=== PATIENT | female | born 1955 | race Caucasian/White ===

== ENCOUNTER → 2023-04-05 08:38 | Outpatient (REF) | payer MEDICARE, OTHER, SELFPAY | LOC: HWWDC 08:38 | PROVIDERS: ATTENDING PHYSICIAN Obstetrics & Gynecology Gynecology; FAMILY PHYSICIAN Internal Medicine | DX: Z12.31 Encounter for screening mammogram for malignant neoplasm of breast (principal) | CPT/HCPCS: 77063; 77067 ==

== ENCOUNTER 2023-10-02 07:15 | Emergency (ER) | payer MEDICARE, OTHER, SELFPAY ==
[2023-10-02 07:22] VITALS: BP 159/84
--- NOTE | 2023-10-02 07:51 | ED.GENMED ---
History of Present Illness
General
Chief Complaint: Throat Problem
Source: patient
Exam Limitations: none
Time Seen by Provider: 10/02/23 07:28
Nursing documentation reviewed up to this point in time: agreed with
History of Present Illness
History of Present Illness:
68-year-old female with no significant chronic medical issues presents to the emergency room for evaluation of sore throat. Patient reports onset of symptoms 4 days ago and they have been constant and she feels worsening since then. She reports
that her past day or 2 she has noticed increased pain and difficulty swallowing her saliva and she says that she is having some sensation of swelling that is causing some mild shortness of breath. She says that she was seen in urgent care and
tested for strep which was negative. She also had COVID test which was negative. She has been managing her symptoms with ibuprofen but given continued worsening came to the emergency room for assessment. Her last dose of ibuprofen was about an
hour prior to arrival. She does note mild cough and this morning she says she coughed up a small amount of bloody phlegm from the back of her throat. She denies fever or chills. She denies any nausea or vomiting. She denies any congestion or
rhinorrhea. She denies any other complaints. She does report that her is sick with a cough as well.
Past History
Past History
ED Past Medical History: None
ED Past Surgical History: None
Review of Systems
Review of Systems
All Other Systems: ROS reviewed and negative except as documented in HPI and ROS
Constitutional: Reports fatigue; Denies fever or chills
EENT: Reports sore throat; Denies runny nose
Respiratory: Reports cough and trouble breathing
Cardiac: Denies chest pain
ABD/GI: Denies abdominal pain, nausea or vomiting
Neurological: Denies headache
Phy Exam
Physical Exam
Physical Exam:
General: Awake, alert, oriented x3; no acute distress
Head: Normocephalic, atraumatic
Eyes: Conjunctiva normal, pupils equal round and reactive to light bilaterally
Ears: TMs clear bilaterally
Nose: No swelling of the turbinates, no nasal discharge, no tenderness of the sinuses
Throat: Airway intact, handling secretions; she has significant injection of the oropharynx and uvula, tonsillar erythema but no exudate noted, no palatal petechiae; no elevation of the tongue, good dentition
Neck: Trachea midline, supple without meningismus; bilateral anterior cervical chain lymphadenopathy
Lungs: Clear to auscultation bilaterally, no wheezing, rales, rhonchi
Heart: Regular rate and rhythm, no murmurs, gallops, or rubs
Neuro: No gross deficits
Extremities: No deformities
Scores
Heart Failure Risk
Heart Failure Risk Score: Not Applicable
Heart Score for Chest Pain Patients
STEMI patient?: Not applicable
Withdrawal Assessment of Alcohol
Withdrawal Assessment Completed?: Not applicable
Course
Orders/Labs/Results
Orders:
Orders
10/02/23 07:43
CT Neck With Iv Contrast Urgent
Comment:
Reason For Exam: worsening throat pain, dysphagia
10/02/23 07:55
Complete Blood Count/With Diff Urgent
Comprehensive Metabolic Panel Urgent
Monotest Urgent
10/02/23 07:59
Dexamethasone Sod Phosphate [Decadron] 10 mg IV NOW STA
Abnormal Lab Results
10/02/23
07:55
WBC 11.6 H 10^3/uL
(4.8-10.8)
MPV 10.9 H fL
(7.4-10.4)
Absolute Neuts (auto) 9.0 H 10^3/uL
(1.4-6.5)
Absolute Monos (auto) 1.0 H 10^3/uL
(0.1-0.6)
Neutrophils % 77.4 H %
(42.2-75.2)
Lymphocytes % 12.1 L %
(20.5-51.1)
Glucose 115 H mg/dl
(70-99)
10/02/23 07:55
10/02/23 07:55
Vital Signs
Initial and Last Documented VS:
Initial Vital Signs
Temp Pulse Resp BP Pulse Ox
37.2 C 65 20 159/84 99
10/02/23 07:22 10/02/23 07:22 10/02/23 07:22 10/02/23 07:22 10/02/23 07:22
Last Documented Vital Signs
Temp Pulse Resp BP Pulse Ox
37.2 C 65 20 159/84 99
10/02/23 07:22 10/02/23 07:22 10/02/23 07:22 10/02/23 07:22 10/02/23 07:22
MDM/Problems Addressed
Differential Diagnosis Includes:
Viral pharyngitis, retropharyngeal abscess, peritonsillar abscess
MDM/Problems Addressed:
68-year-old female presents for evaluation of worsening throat pain x 4 days now associated with some pain and difficulty swallowing she also reports a sensation of swelling in her throat causing some mild shortness of breath. Negative for strep
and COVID at urgent care. Treating with ibuprofen at home. Hypertensive but otherwise normal vitals. Physical exam as above. Will check basic labs, monoscreen. Given worsening throat pain and trouble swallowing will send for CT of the neck to
rule out [employer] EXPORT or RPA although no hard signs to suggest this on exam. Will treat with dexamethasone. Will reassess after the above.
Labs reviewed: CBC shows slight leukocytosis to 11.6, CMP no clinically significant abnormalities. CT of the neck shows no abscess. Suspect acute cellulitis. Will treat with steroids, cover with antibiotics for any occult bacterial process. She
is protecting her airway, vitals have been stable, stable for discharge. Patient comfortable this plan. All questions answered.
*Radiology
Radiology exam reviewed: radiology read reviewed
*Pulse Oximetry
Patient hypoxic: no
*Critical Care Note
Total Time (30-74mins, 75-104mins- exclusive of procedures): Not Applicable
Data Reviewed
Source: patient
ED Attending Note
-
Portions of this chart may have been created with voice recognition software.� Occasional wrong word or��sound alike� substitutions may have occurred due to the inherent limitations of voice recognition software.
Discharge Plan
Departure
Patient Disposition: Home (Routine Discharge)
Date of Disposition: 10/02/23
Time of Disposition: 09:53
Patient with high blood pressure during this ER visit?: Yes
Discharge Problem:
Acute pharyngitis
Instructions: Viral Pharyngitis, Sore Throat, Adult ED
Prescriptions:
New
amoxicillin-pot clavulanate 875-125 mg tablet
1 tab PO BID 7 Days Qty: 14 0RF
dexamethasone 4 mg tablet
4 mg PO DAILY Qty: 2 0RF
No Action
multivitamin 1 EACH tablet
1 ea PO DAILY
cephalexin 500 MG capsule
500 mg PO BID Qty: 13 0RF
Referrals:
Nam Basurto MD [Active] - As needed (ENT--call as needed if symptoms not improving with treatment)
Karis Mercer DO [Family Provider] - Call in 1-3 days for appt
Activity Restrictions/Additional Instructions:
Thank you for visiting the Emergency Department at [facility].
1. Please schedule a follow up appointment as directed. Call first thing tomorrow morning to make an appointment.
2. If indicated, please take your medications as instructed and indicated on discharge paperwork.
3. If any of your symptoms do not improve, or persist, or become more severe within 6-12 hours, please return to the emergency department for further care.
4. Please return to the emergency department if you develop a headache, neck pain/stiffness, fever greater than 100.4F, chest pain, shortness of breath, persistent nausea, vomiting, slurred speech, difficulty walking, numbness/tingling, weakness,
signs of infection or any other symptoms that are worrisome to you.
Please call [phone] if you have any questions.
Interventions
Interventions:
ED-EENT Assessment Last Done: 10/02/23 07:47
ED- Pulmonary Assessment Last Done: 10/02/23 07:47
Discharge Date and Time
Print Language: LAO
[2023-10-02 08:17] LABS: % Basophils 0.3 % (0-2); % Eosinophils 1.3 % (0-6); % Immature Granulocytes 0.3 % (0-0.5); % Lymphocytes 12.1 % (20.5-51.1); % Monocytes 8.6 % (1.7-9.3); % Neutrophils 77.4 % (42.2-75.2); ALT (SGPT) 16 U/L (0-35); AST (SGOT) 22 U/L (14-36); Absolute Eosinophils 0.2 10^3/uL (0-0.7); Absolute Lymphocytes 1.4 10^3/uL (1.2-3.4); Albumin 4.3 g/dl (3.5-5.0); Alkaline Phosphatase 70 U/L (38-126); Blood Urea Nitrogen 12 mg/dl (7-17); Calcium 9.5 mg/dl (8.4-10.2); Carbon Dioxide 26 mmol/L (22-30); Chloride 105 mmol/L (98-107); Glucose 115 mg/dl (70-99); Hematocrit 42.5 % (37.0-47.0); Hemoglobin 14.8 g/dL (12.0-16.0); Mean Corp Hgb Conc. 34.8 g/dL (33.0-37.0); Mean Corpuscular Hgb 30.6 pg (27.0-31.0); Mean Platelet Volume 10.9 fL (7.4-10.4); Nucleated Red Blood Cells % 0 %; Platelet Count 277 10^3/uL (130-400); Potassium 4.6 mmol/L (3.5-5.1); Red Blood Cell Count 4.83 10^6/uL (4.20-5.40); Red Cell Dist. Width 12.4 % (11.5-14.5); Sodium 138 mmol/L (135-145); Total Bilirubin 0.6 mg/dl (0.2-1.3); Total Protein 6.8 g/dl (6.3-8.2); White Blood Cell Count 11.6 10^3/uL (4.8-10.8); eGFR > 60.00
[2023-10-02] MEDS: DECADRON 10 MG IV (08:24)
[2023-10-02 08:38] LABS: Monotest Negative (Negative)
[2023-10-02 10:00] VITALS: BP 134/83
== END 2023-10-02 10:32 | disposition home or self-care (01) ==
LOC: EMR 07:15
PROVIDERS: EMERGENCY PHYSICIAN Emergency Medicine; FAMILY PHYSICIAN Family Medicine
DX: J02.9 Acute pharyngitis, unspecified (principal); I10 Essential (primary) hypertension
CPT/HCPCS: 99284; 70491; 80053; 85025; 86308; Q9967

== ENCOUNTER → 2024-04-07 08:39 | Outpatient (REF) | payer MEDICARE, OTHER, SELFPAY | LOC: HWWDC 08:39 | PROVIDERS: ATTENDING PHYSICIAN Obstetrics & Gynecology Gynecology; FAMILY PHYSICIAN Internal Medicine | DX: Z12.31 Encounter for screening mammogram for malignant neoplasm of breast (principal) | CPT/HCPCS: 77063; 77067 ==

== ENCOUNTER → 2024-04-24 15:01 | Outpatient (REF) | payer MEDICARE, OTHER, SELFPAY | LOC: HWRAD 15:01 | PROVIDERS: ATTENDING PHYSICIAN Internal Medicine; REFERRING PHYSICIAN Obstetrics & Gynecology Gynecology | DX: Z12.31 Encounter for screening mammogram for malignant neoplasm of breast (principal); M85.80 Other specified disorders of bone density and structure, unspecified site; M54.50 Low back pain, unspecified; M81.0 Age-related osteoporosis without current pathological fracture | CPT/HCPCS: 77080 ==